=== PATIENT | female | born 1980 | race Caucasian/White ===

== ENCOUNTER 2017-11-14 12:12 | Emergency (ER) | payer MEDICAID | END 2017-11-14 13:12 | disposition home or self-care (01) | LOC: BURERS 12:12 | DX: J06.9 Acute upper respiratory infection, unspecified (principal); F41.9 Anxiety disorder, unspecified; F43.10 Post-traumatic stress disorder, unspecified; F17.210 Nicotine dependence, cigarettes, uncomplicated | CPT/HCPCS: 99283 ==

== ENCOUNTER 2017-12-22 12:51 | Emergency (ER) | payer MEDICAID ==
[2017-12-22] MEDS ORDERED: Bicillin CR 1.2 MILL UNITS/2 ML SYRINGE ONE (13:26)
[2017-12-22] MEDS ORDERED: Dexamethasone 4 mg/ml Vial ONE (13:26)
[2017-12-22] MEDS ORDERED: HYDROcodone/Acetaminophen 10/325 mg Tablet ONE (13:26)
== END 2017-12-22 13:48 | disposition home or self-care (01) ==
LOC: BURERS 12:51
DX: J02.9 Acute pharyngitis, unspecified (principal); F43.10 Post-traumatic stress disorder, unspecified; F17.210 Nicotine dependence, cigarettes, uncomplicated; F41.0 Panic disorder [episodic paroxysmal anxiety]; Z79.899 Other long term (current) drug therapy
CPT/HCPCS: 87430; 96372; J0558; J1100

== ENCOUNTER 2018-01-10 14:40 | Emergency (ER) | payer MEDICAID, OTHER ==
[2018-01-10 15:22] LABS: MONO NEGATIVE CONTROL ZONE White (Negative) (White); MONO POSITIVE CONTROL Pink Line (Positive) (PINK/RED); Mononucleosis NEGATIVE (NEGATIVE)
[2018-01-10 15:26] LABS: #Basophils 0.1 thou/uL (0.0-0.2); #Eosinphils 0.1 thou/uL (0.0-0.7); #Lymphocytes 1.8 thou/uL (1.20-3.40); #Monocytes 0.4 thou/uL (0.11-0.59); #Neutrophils 4.4 thou/uL (1.40-6.50); %Basophils 0.9 % (0.0-1.0); %Eosinophils 1.9 % (0.0-10.0); %Lymphocytes 26.5 % (21.0-51.0); %Monocytes 5.7 % (0.0-10.0); Hemoglobin 14.3 g/dL (12.0-16.0); Mean Corpuscular HGB CONC 37.4 g/dL (32.0-36.0); Mean Corpuscular Hemoglobin 30.2 pg (27.0-31.0); Mean Corpuscular Volume 80.8 fL (78.0-98.0); Mean Platelet Volume 8.8 fL (7.4-10.4); Platelet Count 209 thou/uL (130-400); RBC Distribution Width 11.4 % (11.5-14.5); Red Blood Cell (RBC) Count 4.72 mill/uL (4.20-5.40); White Blood Cell (WBC) Count 6.8 thou/uL (4.8-10.8)
[2018-01-10 15:27] LABS: MDiff Complete? YES
[2018-01-10] MEDS ORDERED: Dexamethasone 4 mg/ml Vial ONE (15:35)
[2018-01-10] MEDS ORDERED: Bicillin CR 1.2 MILL UNITS/2 ML SYRINGE ONE (15:36)
== END 2018-01-10 15:53 | disposition home or self-care (01) ==
LOC: BURERS 14:40
DX: J02.9 Acute pharyngitis, unspecified (principal); F41.9 Anxiety disorder, unspecified; F17.210 Nicotine dependence, cigarettes, uncomplicated
CPT/HCPCS: 85025; 86308; 96372; J0558; J1100

== ENCOUNTER 2018-01-17 16:28 | Emergency (ER) | payer OTHER | END 2018-01-17 17:00 | disposition home or self-care (01) | LOC: BURERS 16:28 | DX: J02.9 Acute pharyngitis, unspecified (principal); F41.9 Anxiety disorder, unspecified; F43.10 Post-traumatic stress disorder, unspecified; F41.0 Panic disorder [episodic paroxysmal anxiety]; F17.210 Nicotine dependence, cigarettes, uncomplicated; Z79.899 Other long term (current) drug therapy | CPT/HCPCS: 99282 ==

== ENCOUNTER 2018-01-31 14:56 | Emergency (ER) | payer OTHER ==
[2018-01-31] MEDS ORDERED: Lorazepam 0.5 MG TAB ONE ×2 (15:48→19:28)
[2018-01-31 16:02] LABS: Bilirubin Negative (Negative); Blood, Urine Negative (Negative); Clarity Clear (Clear); Glucose, Urine (Dipstick) Negative (Negative); Leukocyte Moderate (Negative); Nitrite Negative (Negative); Protein, Urine (Dipstick) Negative (Neg-Trace); Urobilinogen 0.2 mg/dL (0.2-1.0); pH, Urine 5.5 (5.0-9.0)
[2018-01-31 16:05] LABS: #Eosinphils 0.3 thou/uL (0.0-0.7); #Monocytes 0.4 thou/uL (0.11-0.59); #Neutrophils 3.9 thou/uL (1.40-6.50); %Basophils 0.7 % (0.0-1.0); %Eosinophils 3.8 % (0.0-10.0); %Lymphocytes 30.4 % (21.0-51.0); %Monocytes 5.9 % (0.0-10.0); %Neutrophils 59.2 % (42.0-75.0); Hemoglobin 13.3 g/dL (12.0-16.0); Mean Corpuscular HGB CONC 35.8 g/dL (32.0-36.0); Mean Platelet Volume 8.6 fL (7.4-10.4); Platelet Count 205 thou/uL (130-400); RBC Distribution Width 11.3 % (11.5-14.5); Red Blood Cell (RBC) Count 4.58 mill/uL (4.20-5.40); White Blood Cell (WBC) Count 6.7 thou/uL (4.8-10.8)
[2018-01-31 16:07] LABS: Bacteria/HPF 1+ HPF (None Seen); RBC/HPF 0-3 HPF (0-3); Squamous Epithelial 0-3 HPF (0-3)
[2018-01-31 16:18] LABS: Acetaminophen Less than 6.0 mcg/mL (10.0-30.0); Alcohol Less than 10 mg/dL (Less than 10); Salicylate Less than 8.0 mg/dL (15.0-30.0)
[2018-01-31 16:25] LABS: CKMB 0.3 ng/mL (0-6.6); Troponin I Less than 0.010 ng/mL (< 0.028)
[2018-01-31 16:25] LABS: Cocaine Metabolite Screen Not Detected (NotDetected); Methamphetamine Not Detected (NotDetected); Phencyclidine (PCP) Not Detected (NotDetected); THC/Cannabinoid Screen Detected (NotDetected)
[2018-01-31 16:26] LABS: Amphetamine Not Detected (NotDetected); Barbiturates Screen Not Detected (NotDetected); Benzodiazepine Screen Detected (NotDetected); Medtox Control Line Valid? VALID (VALID); Methadone Not Detected (NotDetected); Opiate Screen Detected (NotDetected); Oxycodone Screen Not Detected (NotDetected); Tricyclic Screen Not Detected (NotDetected)
[2018-01-31 16:46] LABS: ALT (SGPT) 17 U/L (8-55); AST (SGOT) 14 U/L (5-34); Albumin 4.1 g/dL (3.5-5.0); Alkaline Phosphatase 68 U/L (40-150); Anion Gap 13 mmol/L (10-20); BUN (Urea Nitrogen) 9 mg/dL (7.0-18.7); Bilirubin, Total 0.3 mg/dL (0.2-1.2); Calc. Creatinine Clearance 0 mL/min (70-130); Calcium 9.3 mg/dL (7.8-10.44); Carbon Dioxide 21 mmol/L (22-29); Chloride 113 mmol/L (98-107); Estimated GFR-MDRD 76; Globulin 2.8 g/dL (2.4-3.5); Glucose 95 mg/dL (70-105); Potassium 4.2 mmol/L (3.5-5.1); Protein, Total 6.9 g/dL (6.0-8.3); Sodium 143 mmol/L (136-145)
[2018-01-31] MEDS ORDERED: traMADol HCl 50 MG TAB ONE (18:12)
[2018-01-31] MEDS ORDERED: Nitrofurantoin Monohyd/M-Cryst 100 MG CAP ONE (18:12)
== END 2018-01-31 22:35 | disposition home or self-care (01) ==
LOC: BURERS 14:56
DX: R45.851 Suicidal ideations (principal); F32.9 Major depressive disorder, single episode, unspecified; F41.9 Anxiety disorder, unspecified; F43.10 Post-traumatic stress disorder, unspecified; F17.290 Nicotine dependence, other tobacco product, uncomplicated; F41.0 Panic disorder [episodic paroxysmal anxiety]
CPT/HCPCS: 36415; 80053; 80306; 80307; 81003; 81015; 82553; 84443; 84484; 85025; 87086; 99285

== ENCOUNTER 2018-04-07 13:23 | Emergency (ER) | payer MEDICAID ==
[2018-04-07] MEDS ORDERED: Dexamethasone 4 mg/ml Vial ONE (13:40)
[2018-04-07] MEDS ORDERED: traMADol HCl 50 MG TAB ONE (13:40)
[2018-04-07] MEDS ORDERED: Bicillin LA 1.2 MILLION UNITS/2 ML SYRINGE ONE (13:41)
== END 2018-04-07 13:50 | disposition home or self-care (01) ==
LOC: BURERS 13:23
DX: J02.0 Streptococcal pharyngitis (principal); F41.9 Anxiety disorder, unspecified; F43.10 Post-traumatic stress disorder, unspecified; F41.0 Panic disorder [episodic paroxysmal anxiety]; F17.210 Nicotine dependence, cigarettes, uncomplicated
CPT/HCPCS: 96372; J0561; J1100

== ENCOUNTER 2018-04-21 13:31 | Emergency (ER) | payer MEDICAID ==
[2018-04-21] MEDS ORDERED: HYDROcodone/Acetaminophen 10/325 mg Tablet ONE (13:59)
--- NOTE | 2018-04-21 16:37 | RAD ---
LEFT SHOULDER THREE VIEWS: 04/21/2018 FINDINGS: No fracture, dislocation, or AC joint widening is seen. The joints appear normal. The adjacent ribs appear intact. IMPRESSION: No significant finding. POS: HOME
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
== END 2018-04-21 15:23 | disposition home or self-care (01) ==
LOC: BURERS 13:31
DX: S40.022A Contusion of left upper arm, initial encounter (principal); M62.830 Muscle spasm of back; Y92.009 Unspecified place in unspecified non-institutional (private) residence as the place of occurrence of the external cause; F32.9 Major depressive disorder, single episode, unspecified; F41.9 Anxiety disorder, unspecified; F43.10 Post-traumatic stress disorder, unspecified; F17.210 Nicotine dependence, cigarettes, uncomplicated; W22.8XXA Striking against or struck by other objects, initial encounter
CPT/HCPCS: 72131

== ENCOUNTER 2018-04-24 19:07 | Emergency (ER) | payer MEDICAID, OTHER ==
[2018-04-24] MEDS ORDERED: Cyclobenzaprine 10 MG TAB ONE (19:24)
== END 2018-04-24 19:28 | disposition home or self-care (01) ==
LOC: BURERS 19:07
DX: M54.5 Low back pain (principal); F32.9 Major depressive disorder, single episode, unspecified; F43.10 Post-traumatic stress disorder, unspecified; F17.210 Nicotine dependence, cigarettes, uncomplicated; F41.0 Panic disorder [episodic paroxysmal anxiety]; Z79.891 Long term (current) use of opiate analgesic
CPT/HCPCS: 99283

== ENCOUNTER → 2018-05-08 | Emergency (ER) | payer OTHER | LOC: BURERS 12:40 | DX: M54.5 Low back pain (principal); F41.9 Anxiety disorder, unspecified; F17.210 Nicotine dependence, cigarettes, uncomplicated; F32.9 Major depressive disorder, single episode, unspecified; F43.10 Post-traumatic stress disorder, unspecified; F41.0 Panic disorder [episodic paroxysmal anxiety]; Z79.899 Other long term (current) drug therapy | CPT/HCPCS: 96372 ==

== ENCOUNTER 2018-06-02 11:00 | Emergency (ER) | payer OTHER ==
[2018-06-02] MEDS ORDERED: Fentanyl 100 MCG/2 ML VIAL ONE (11:14)
[2018-06-02] MEDS ORDERED: Ondansetron PF 4 MG/2 ML Vial ONE (11:29)
[2018-06-02] MEDS ORDERED: Ketorolac Tromethamine 30 MG/ML VIAL ONE (11:29)
[2018-06-02] MEDS ORDERED: HYDROcodone/Acetaminophen 10/325 mg Tablet ONE (11:57)
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
== END 2018-06-02 12:00 | disposition home or self-care (01) ==
LOC: BURERS 11:00
DX: S39.92XA Unspecified injury of lower back, initial encounter (principal); F32.9 Major depressive disorder, single episode, unspecified; F41.9 Anxiety disorder, unspecified; F17.210 Nicotine dependence, cigarettes, uncomplicated; Z79.899 Other long term (current) drug therapy; W19.XXXA Unspecified fall, initial encounter
CPT/HCPCS: 72131; 96374; 96375; J1885; J2405; J3010

== ENCOUNTER 2018-06-07 16:12 | Emergency (ER) | payer OTHER ==
[2018-06-07] MEDS ORDERED: Ketorolac Tromethamine 30 MG/ML VIAL ONE (17:11)
== END 2018-06-07 17:24 | disposition home or self-care (01) ==
LOC: BURERS 16:12
DX: G89.29 Other chronic pain (principal); M54.5 Low back pain; F32.9 Major depressive disorder, single episode, unspecified; F43.10 Post-traumatic stress disorder, unspecified; F41.0 Panic disorder [episodic paroxysmal anxiety]; F17.210 Nicotine dependence, cigarettes, uncomplicated; Z79.899 Other long term (current) drug therapy
CPT/HCPCS: 96372; J1885

== ENCOUNTER 2018-06-16 12:57 | Emergency (ER) | payer OTHER ==
[2018-06-16] MEDS ORDERED: traMADol HCl 50 MG TAB ONE (13:35)
[2018-06-16] MEDS ORDERED: Ibuprofen 200 MG TAB ONE (13:35)
--- NOTE | 2018-06-16 15:45 | RAD ---
PELVIS 06/16/18 Two views are submitted. No fracture or area of bony destruction was seen. The symphysis shows no wid ening of off-set. The hip joints are symmetrical and appear normal. The SI joints are symmetrical. IMPRESSION: No significant findings. POS: HOME
== END 2018-06-16 14:11 | disposition home or self-care (01) ==
LOC: BURERS 12:57
DX: M54.5 Low back pain (principal); S30.0XXD Contusion of lower back and pelvis, subsequent encounter; F17.210 Nicotine dependence, cigarettes, uncomplicated; F32.9 Major depressive disorder, single episode, unspecified; Z79.899 Other long term (current) drug therapy; W18.30XA Fall on same level, unspecified, initial encounter
CPT/HCPCS: 72170

== ENCOUNTER 2018-12-17 13:50 | Emergency (ER) | payer OTHER, SELFPAY ==
[2018-12-17] MEDS ORDERED: Ketorolac Tromethamine 30 MG/ML VIAL ONE (14:05)
[2018-12-17] MEDS ORDERED: traMADol HCl 50 MG TAB ONE (14:45)
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
== END 2018-12-17 14:58 | disposition home or self-care (01) ==
LOC: BURERS 13:50
DX: S00.83XA Contusion of other part of head, initial encounter (principal); F41.9 Anxiety disorder, unspecified; F43.10 Post-traumatic stress disorder, unspecified; F32.9 Major depressive disorder, single episode, unspecified; Z79.899 Other long term (current) drug therapy; W20.8XXA Other cause of strike by thrown, projected or falling object, initial encounter
CPT/HCPCS: 70486; 96372; J1885

== ENCOUNTER 2019-02-20 22:05 | Emergency (ER) | payer SELFPAY ==
[2019-02-20] MEDS ORDERED: ALPRAZolam 0.5 MG TAB ONE ×2 (22:18→23:09)
[2019-02-20 22:41] LABS: Bilirubin Negative (Negative); Blood, Urine Negative (Negative); Clarity Clear (Clear); Glucose, Urine (Dipstick) Negative (Negative); Leukocyte Trace (Negative); Nitrite Negative (Negative); Protein, Urine (Dipstick) Negative (Neg-Trace); Urobilinogen 0.2 mg/dL (Less than 2)
[2019-02-20 22:42] LABS: Pregnancy Test - Urine (BHCG) Negative (Negative); Pregu Control Background? CLEAR/WHITE (CLR/WHITE); Pregu Control Bar Appear? YES (CONTROL BAR); Specific Gravity 1.025 (1.002-1.036)
[2019-02-20 22:47] LABS: Bacteria/HPF 1+ HPF (None Seen); Squamous Epithelial 0-3 HPF (0-3)
== END 2019-02-20 23:35 | disposition home or self-care (01) ==
LOC: BURERS 22:05
DX: F41.1 Generalized anxiety disorder (principal); F43.10 Post-traumatic stress disorder, unspecified; F31.9 Bipolar disorder, unspecified; F17.210 Nicotine dependence, cigarettes, uncomplicated
CPT/HCPCS: 81003; 81015; 81025; 99283

== ENCOUNTER 2019-02-22 17:21 | Emergency (ER) | payer SELFPAY ==
[2019-02-22] MEDS ORDERED: Lorazepam 0.5 MG TAB ONE (17:42)
== END 2019-02-22 17:42 | disposition home or self-care (01) ==
LOC: BURERS 17:21
DX: F41.9 Anxiety disorder, unspecified (principal); F17.210 Nicotine dependence, cigarettes, uncomplicated; F32.9 Major depressive disorder, single episode, unspecified; Z79.899 Other long term (current) drug therapy
CPT/HCPCS: 99283

== ENCOUNTER → 2019-04-01 | Emergency (ER) | payer SELFPAY ==
[~2019-04-01] MED LIST: Cyclobenzaprine 10 MG TAB ONE; Ketorolac Tromethamine 60 MG/2 ML VIAL ONE
== END ==
LOC: BURERS 17:00
DX: Z76.5 Malingerer [conscious simulation] (principal); F41.0 Panic disorder [episodic paroxysmal anxiety]; F43.10 Post-traumatic stress disorder, unspecified; F17.210 Nicotine dependence, cigarettes, uncomplicated
CPT/HCPCS: 99281; J1885

== ENCOUNTER → 2019-06-27 | Emergency (ER) | payer SELFPAY ==
[~2019-06-27] MED LIST changes: +Acetaminophen 500 MG TAB ONE; -Cyclobenzaprine 10 MG TAB ONE; -Ketorolac Tromethamine 60 MG/2 ML VIAL ONE
== END ==
LOC: BURERS 12:31
DX: K04.7 Periapical abscess without sinus (principal); Z71.6 Tobacco abuse counseling; F43.10 Post-traumatic stress disorder, unspecified; F41.9 Anxiety disorder, unspecified; F32.9 Major depressive disorder, single episode, unspecified; F17.210 Nicotine dependence, cigarettes, uncomplicated
CPT/HCPCS: 99406

== ENCOUNTER 2019-09-20 13:23 | Emergency (ER) | payer SELFPAY | END 2019-09-20 14:00 | disposition home or self-care (01) | LOC: BURERS 13:23 | DX: K02.9 Dental caries, unspecified (principal); F32.9 Major depressive disorder, single episode, unspecified; F43.10 Post-traumatic stress disorder, unspecified; F41.0 Panic disorder [episodic paroxysmal anxiety]; F17.210 Nicotine dependence, cigarettes, uncomplicated; Z71.6 Tobacco abuse counseling | CPT/HCPCS: 99406 ==

== ENCOUNTER 2020-02-04 03:00 | Emergency (ER) | payer SELFPAY ==
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
== END 2020-02-04 04:40 | disposition home or self-care (01) ==
LOC: BURERS 03:00
DX: S09.90XA Unspecified injury of head, initial encounter (principal); F43.10 Post-traumatic stress disorder, unspecified; F41.0 Panic disorder [episodic paroxysmal anxiety]; F32.9 Major depressive disorder, single episode, unspecified; F17.210 Nicotine dependence, cigarettes, uncomplicated; Z79.899 Other long term (current) drug therapy; Y04.2XXA Assault by strike against or bumped into by another person, initial encounter
CPT/HCPCS: 70450

== ENCOUNTER 2021-07-06 17:38 | Emergency (ER) | payer OTHER, SELFPAY | END 2021-07-06 18:15 | disposition home or self-care (01) | LOC: BURERS 17:38 | DX: F43.0 Acute stress reaction (principal); F91.9 Conduct disorder, unspecified; Z76.5 Malingerer [conscious simulation]; F41.8 Other specified anxiety disorders; F17.210 Nicotine dependence, cigarettes, uncomplicated ==

== ENCOUNTER 2021-09-27 13:10 | Emergency (ER) | payer SELFPAY | END 2021-09-27 13:54 | disposition home or self-care (01) | LOC: BURERS 13:10 | DX: J11.1 Influenza due to unidentified influenza virus with other respiratory manifestations (principal); J01.90 Acute sinusitis, unspecified; B96.89 Other specified bacterial agents as the cause of diseases classified elsewhere; K03.81 Cracked tooth; F17.290 Nicotine dependence, other tobacco product, uncomplicated | CPT/HCPCS: 99282 ==

== ENCOUNTER 2022-03-07 00:30 | Emergency (ER) | payer MEDICAID, SELFPAY ==
[2022-03-07] MEDS ORDERED: Amoxicillin/Potassium Clav 875 MG TAB ONE (00:59)
[2022-03-07] MEDS ORDERED: traMADol HCl 50 MG TAB ONE (01:00)
== END 2022-03-07 01:12 | disposition home or self-care (01) ==
LOC: BURERS 00:30
DX: K03.81 Cracked tooth (principal); K04.7 Periapical abscess without sinus; F17.290 Nicotine dependence, other tobacco product, uncomplicated
CPT/HCPCS: 99283

== ENCOUNTER 2022-07-05 09:55 | Emergency (ER) | payer SELFPAY ==
[2022-07-05] MEDS ORDERED: Lidocaine 2% PF 5 ML VIAL ONE (10:32)
[2022-07-05] MEDS ORDERED: Penicillin V Potassium 250 MG TAB ONE (10:51)
[2022-07-05] MEDS ORDERED: HYDROcodone/Acetaminophen 5/325 mg Tablet ONE (10:51)
== END 2022-07-05 10:54 | disposition home or self-care (01) ==
LOC: BURERS 09:55
DX: K04.7 Periapical abscess without sinus (principal); Z87.891 Personal history of nicotine dependence
CPT/HCPCS: 64400; J2001

== ENCOUNTER 2022-07-10 17:22 | Emergency (ER) | payer SELFPAY ==
[2022-07-10] MEDS ORDERED: traMADol HCl 50 MG TAB ONE (17:52)
[2022-07-10] MEDS ORDERED: Clindamycin 150 MG CAP ONE (17:52)
== END 2022-07-10 18:00 | disposition home or self-care (01) ==
LOC: BURERS 17:22
DX: K04.7 Periapical abscess without sinus (principal); Z87.891 Personal history of nicotine dependence
CPT/HCPCS: 99282

== ENCOUNTER 2023-01-22 15:16 | Emergency (ER) | payer OTHER, SELFPAY ==
[2023-01-22] MEDS ORDERED: Ketorolac Tromethamine 30 MG/ML VIAL ONE (15:38)
== END 2023-01-22 15:45 | disposition home or self-care (01) ==
LOC: BURERS 15:16
DX: S40.011A Contusion of right shoulder, initial encounter (principal); W19.XXXA Unspecified fall, initial encounter; Z87.891 Personal history of nicotine dependence
CPT/HCPCS: 99283; J1885

== ENCOUNTER 2023-09-05 18:22 | Emergency (ER) | payer SELFPAY ==
[2023-09-05] MEDS ORDERED: Lidocaine 2% PF 5 ML VIAL ONE (18:32)
== END 2023-09-05 19:25 | disposition home or self-care (01) ==
LOC: BURERS 18:22
DX: T16.1XXA Foreign body in right ear, initial encounter (principal)
CPT/HCPCS: 99282; J2001

== ENCOUNTER 2023-11-08 12:51 | Emergency (ER) | payer SELFPAY | END 2023-11-08 13:19 | disposition home or self-care (01) | LOC: BURERS 12:51 | DX: Z48.00 Encounter for change or removal of nonsurgical wound dressing (principal); S41.151D Open bite of right upper arm, subsequent encounter; F17.290 Nicotine dependence, other tobacco product, uncomplicated | CPT/HCPCS: 99283 ==